=== PATIENT | female | born 1950 | race Caucasian/White ===

== ENCOUNTER 2016-12-08 07:43 | Emergency (ER) | payer BC ==
[~2016-12-08] VITALS: Ht 167.6 cm; Wt 67.5 kg
[~2016-12-08 07:43] MED LIST: ACET-1175 PO; ASPI1TAB35; CHOL100010 PO; CLC100X PO; ERGO500037 PO; LEVO-371; LEVO125T72 PO; MORP1CAP PO; OMEP10CA2 PO; ONDA8TAB6 PO; PHEN-775 PO; RIZA10TA18 PO; SENN-63 PO; XNX25 PO
[2016-12-08 07:48] VITALS: TEMP 36.7; Ht 167.6 cm; Wt 67.5 kg
--- NOTE | 2016-12-08 08:11 | EMERGENCY ROOM VISIT NOTE ---
History Report prepared by Arnoldo: Lawanda Lynch Under the Supervision of: Kadeem OteroO. First contact with patient: 07:50 Chief Complaint: SWELLING TO EXTREMITY Stated Complaint: SWELLING/BRUISING TO TOP OF LEFT FOOT History of Present Illness The patient is a 66 year old female who presents to the Emergency Room with complaints of persistent left foot bruising and swelling starting this morning. She woke up this morning with her symptoms. She reports a mild pain to the right lower leg. She took her grandson to the playground last night but denies any trauma or injuries. She has a history of being easily bruised occurring for many years. Pt denies headache, change in vision, fevers, chest pain, shortness of breath, vomiting, diarrhea, and pain with urination. Source of History: patient Onset: this morning Position: foot (left) Symptom Intensity: mild Quality: other (bruising and swelling) Timing: other (persistent) Associated Symptoms: No fevers, No headache, No chest pain, No SOB, No vomiting, No diarrhea Review of Systems See HPI for pertinent positives & negatives. A total of 10 systems reviewed and were otherwise negative. Past Medical & Surgical Medical Problems: (1) Anxiety disorder (2) Anxiety disorder (3) Cholecystectomy (4) Cholecystectomy (5) Chronic interstitial cystitis (6) Chronic interstitial cystitis (7) Fibromyalgia (8) Fibromyalgia (9) Gastroesophageal reflux disease (10) Gastroesophageal reflux disease (11) Hypothyroidism (12) Hypothyroidism (13) Hysterectomy (14) Hysterectomy (15) Internal hemorrhoids (16) Internal hemorrhoids (17) Irritable colon (18) Irritable colon (19) Lumbar radiculopathy (20) Lumbar radiculopathy (21) Migraine (22) Migraine (23) PERSONAL HX OF TIA,& CEREBRAL INFARCTION W/OUT RES DEFICITS (24) PERSONAL HX OF TIA,& CEREBRAL INFARCTION W/OUT RES DEFICITS (25) Pyelonephritis (26) Pyelonephritis (27) Spinal stenosis (28) Spinal stenosis (29) Spinal stenosis of lumbar region (30) Spinal stenosis of lumbar region (31) Vitamin D deficiency (32) Vitamin D deficiency Family History FH: heart disease Hypertension Social History Smoking Status: Never Smoker Alcohol Use: none Drug Use: none Marital Status: Housing Status: lives with family Occupation Status: disabled Current/Historical Medications Scheduled Alprazolam (Alprazolam), 1 TAB PO DAILY Aspirin (Jameson Aspirin), 650 MG DAILY Cholecalciferol (Vitamin D3), 3 TAB PO DAILY Levocetirizine Dihydrochloride (Xyzal), 5 MG DAILY Levothyroxine Sodium (Levothyroxine Sodium), 1 TAB PO DAILY Morphine Sulfate Beads (Morphine Sulfate ER), 1 CAP PO DAILY Morphine Sulfate Beads (Morphine Sulfate ER), 1 CAP PO TID Ondansetron Hcl (Zofran), 8 MG PO PRN Phenazopyridine Hcl (Pyridium), 200 MG PO PRN Rizatriptan Benzoate (Maxalt), 10 MG PO DAILY Sennosides (Senokot), 1 TAB PO 4XWK Scheduled PRN Acetaminophen (Tylenol), 650 MG PO Q6 PRN Allergies Coded Allergies: Quinolones (Unverified Allergy, Severe, SWELLING, 12/08/16) Sulfa Antibiotics (Unverified Allergy, Severe, FACIAL SWELLING/RASH/HIVES (TO SULFA DRUGS), 12/08/16) Azithromycin (Unverified Allergy, Intermediate, SWELLING, 12/08/16) Levofloxacin (Unverified Allergy, Intermediate, SWELLING, 12/08/16) Physical Exam Vital Signs Date Time Temp Pulse Resp B/P (MAP) Pulse Ox O2 Delivery O2 Flow Rate FiO2 12/08/16 09:01 65 18 135/73 98 12/08/16 07:48 36.7 85 18 157/68 99 Room Air Physical Exam GENERAL: Sitting up in bed, alert, well appearing, well nourished, no distress, non-toxic EYE EXAM: normal conjunctiva OROPHARYNX: no exudate, no erythema, lips, buccal mucosa, and tongue normal and mucous membranes are moist LUNGS: Clear to auscultation. Normal chest wall mechanics HEART: no murmurs, S1 normal and S2 normal ABDOMEN: abdomen soft, non-tender, normo-active bowel sounds, no masses, no rebound or guarding. SKIN: no rashes. Left foot base of skin is intact, no erythema, no evidence of cellulitis. UPPER EXTREMITIES: upper extremities are grossly normal. LOWER EXTREMITIES: No pitting edema. Flexion extension of left hip, knee, ankle , EHL are 5/5. Gross sensations intact. Able to ambulate without difficulty. No tenderness within the ankle. Diffuse bruising to the dorsal aspect of the foot tracking up to the distal ankle. No tenderness to the base of the fifth metatarsal or the arch of the foot. No pain with inversion or eversion. NEURO EXAM: Normal sensorium, cranial nerves II-XII grossly intact, normal speech, no gross weakness of arms, no gross weakness of legs. Medical Decision & Procedures Laboratory Results 12/08/16 08:10 Red Blood Count 4.69, Mean Corpuscular Volume 89.3, Mean Corpuscular Hemoglobin 30.1, Mean Corpuscular Hemoglobin Concent 33.7, Mean Platelet Volume 11.0, Neutrophils (%) (Auto) 64.3, Lymphocytes (%) (Auto) 21.8, Monocytes (%) (Auto) 9.1, Eosinophils (%) (Auto) 3.5, Basophils (%) (Auto) 1.1, Neutrophils # (Auto) 5.25, Lymphocytes # (Auto) 1.78, Monocytes # (Auto) 0.74, Eosinophils # (Auto) 0.29, Basophils # (Auto) 0.09 Test 12/08/16 08:10 White Blood Count 8.17 K/uL (4.8-10.8) Red Blood Count 4.69 M/uL (4.2-5.4) Hemoglobin 14.1 g/dL (12.0-16.0) Hematocrit 41.9 % (37-47) Mean Corpuscular Volume 89.3 fL (80-100) Mean Corpuscular Hemoglobin 30.1 pg (25-34) Mean Corpuscular Hemoglobin Concent 33.7 g/dl (32-36) Platelet Count 224 K/uL (130-400) Mean Platelet Volume 11.0 fL (7.4-10.4) Neutrophils (%) (Auto) 64.3 % Lymphocytes (%) (Auto) 21.8 % Monocytes (%) (Auto) 9.1 % Eosinophils (%) (Auto) 3.5 % Basophils (%) (Auto) 1.1 % Neutrophils # (Auto) 5.25 K/uL (1.4-6.5) Lymphocytes # (Auto) 1.78 K/uL (1.2-3.4) Monocytes # (Auto) 0.74 K/uL (0.11-0.59) Eosinophils # (Auto) 0.29 K/uL (0-0.5) Basophils # (Auto) 0.09 K/uL (0-0.2) RDW Standard Deviation 42.0 fL (36.4-46.3) RDW Coefficient of Variation 12.9 % (11.5-14.5) Immature Granulocyte % (Auto) 0.2 % Immature Granulocyte # (Auto) 0.02 K/uL (0.00-0.02) Laboratory results per my review. ED Course ED COURSE: Vital signs were reviewed and showed hypertensive. The patients medical record was reviewed The above diagnostic studies were performed and reviewed. ED treatments and interventions as stated above. 1749: The patient was evaluated in room B03B. A complete history and physical examination was performed. 2032: I updated the patient. 2049: Upon reevaluation, the patient is resting comfortably.I discussed my findings with the patient and she understands and agrees with the treatment plan. Based on the patients age, coexisting illnesses, exam and lab findings the decision to treat as an outpatient was made. The patient remained stable while under my care. The patient appeared well at the time of discharge. Medical Decision Differential diagnosis: Etiologies such as DVT, musculoskeletal, infection, joint effusion, trauma, lymphedema, idiopathic, CHF, as well as others were entertained. Patient is a 66-year-old female who presents the ER for left foot contusion on the dorsal aspect. Patient has no other complaints. Full active range of motion. No erythema.No signs of cellulitis. No erythema. CBC was drawn to check platelets and hemoglobin. CBC was unremarkable. Patient was updated bedside. She was discharged follow-up PCP. Discussed with Pt concerning signs and symptoms to watch out for. Pt was instructed to follow up with their PCP and discussed with the patient their option to return to the ED at anytime for persistent or worsening symptoms. The appropriate anticipatory guidance and out- patient management, including indications for return to the emergency department , were explained at length to the patient and understood. Medication Reconcilliation Current Medication List: was personally reviewed by me Blood Pressure Screening Patient's blood pressure: Elevated blood pressure Blood pressure disposition: Elevated BP felt to be situational Impression Primary Impression: Contusion, foot Scribe Attestation The scribe's documentation has been prepared under my direction and personally reviewed by me in its entirety. I confirm that the note above accurately reflects all work, treatment, procedures, and medical decision making performed by me. Departure Information Dispostion Home / Self-Care Referrals No Doctor, Assigned (PCP) Forms HOME CARE DOCUMENTATION FORM, IMPORTANT VISIT INFORMATION, WORK / SCHOOL INSTRUCTIONS Patient Instructions ED Contusion Foot, My [facility] Additional Instructions Please follow up with your primary care doctor or if you are a student, [facility] with in the next 24 hours. Any worsening of your symptoms, please return to the ED immediately. This includes any fevers greater than 100.4, worsening pain, chest pain, shortness breath, redness of your foot, worsening bruising, inability to walk, or any other concerning signs or symptoms from your standpoint. Please take Motrin or Tylenol as needed for your pain. Problem Qualifiers Primary Impression: Contusion, foot Encounter type: initial encounter Laterality: left Qualified Codes: S90.32XA - Contusion of left foot, initial encounter
[2016-12-08 08:23] LABS: BASO % 1.1 %; BASO ABS # 0.09 K/uL (0-0.2); COMPLETE YES; EOS % 3.5 %; HEMATOCRIT 41.9 % (37-47); IG% 0.2 %; LYMPH % 21.8 %; LYMPH ABS # 1.78 K/uL (1.2-3.4); MEAN CELL VOLUME 89.3 fL (80-100); MEAN CORPUSCULAR HEMOGLOBIN 30.1 pg (25-34); MEAN CORPUSCULAR HGB CONC 33.7 g/dl (32-36); MONO % 9.1 %; NEUT % 64.3 %; PLATELET COUNT 224 K/uL (130-400); RED BLOOD COUNT 4.69 M/uL (4.2-5.4); WHITE BLOOD COUNT 8.17 K/uL (4.8-10.8)
[2016-12-08] MEDS ORDERED: CHOL1000 PO (08:48)
[2016-12-08] MEDS ORDERED: LEVO100T7 PO (08:48)
[2016-12-08] MEDS ORDERED: ALPR-412 PO (08:48)
[2016-12-08] MEDS ORDERED: MORP1CAP PO ×2 (08:48)
[2016-12-08 09:01] VITALS: BP 135/73; PULSE 65; O2SAT 98
== END 2016-12-08 09:02 | disposition home or self-care (01) ==
LOC: C.EDB 07:44
DX: S90.32XA Contusion of left foot, initial encounter (principal); X58.XXXA Exposure to other specified factors, initial encounter; F41.9 Anxiety disorder, unspecified; N30.10 Interstitial cystitis (chronic) without hematuria; M79.7 Fibromyalgia; K21.9 Gastro-esophageal reflux disease without esophagitis; E03.9 Hypothyroidism, unspecified; K64.8 Other hemorrhoids; K58.9 Irritable bowel syndrome, unspecified; M54.16 Radiculopathy, lumbar region; G43.909 Migraine, unspecified, not intractable, without status migrainosus; M48.06 Spinal stenosis, lumbar region; E55.9 Vitamin D deficiency, unspecified; Z90.710 Acquired absence of both cervix and uterus; Z86.73 Personal history of transient ischemic attack (TIA), and cerebral infarction without residual deficits; Z79.82 Long term (current) use of aspirin; Z82.49 Family history of ischemic heart disease and other diseases of the circulatory system

== ENCOUNTER → 2016-12-18 | Outpatient (CLI) | payer BC ==
[~2016-12-18] MED LIST changes: +ALPR-412 PO; +CHOL1000 PO; -CHOL100010 PO; -CLC100X PO; -ERGO500037 PO; +LEVO100T7 PO; -LEVO125T72 PO; -OMEP10CA2 PO; -XNX25 PO
[2016-12-18 12:45] LABS: BLOOD UREA NITROGEN 8 mg/dl (7-18); BUN/CREATININE RATIO 9.6 (10-20); CALCIUM 9.1 mg/dl (8.5-10.1); CARBON DIOXIDE 32 mmol/L (21-32); CHLORIDE 102 mmol/L (98-107); CREATININE 0.88 mg/dl (0.60-1.20); GLUCOSE 87 mg/dl (70-99); POTASSIUM 4.1 mmol/L (3.5-5.1); SODIUM 138 mmol/L (136-145)
[2016-12-18 12:56] LABS: CHOLESTEROL 176 mg/dl (0-200); CHOLESTEROL/HDL RATIO 2.7; HDL CHOLESTEROL 66 mg/dl; LDL CHOLESTEROL CALCULATED 98 mg/dl; TRIGLYCERIDES 62 mg/dl (0-150); VERY LOW DENSITY LIPOPROT CALC 12 mg/dl
== END | disposition home or self-care (01) ==
LOC: C.LAB 10:42
DX: E55.9 Vitamin D deficiency, unspecified (principal); E03.9 Hypothyroidism, unspecified; K21.9 Gastro-esophageal reflux disease without esophagitis; Z13.220 Encounter for screening for lipoid disorders

== ENCOUNTER → 2017-01-24 | Outpatient (CLI) | payer BC | END | disposition home or self-care (01) | LOC: C.LAB 10:50 | DX: E03.9 Hypothyroidism, unspecified (principal) ==

== ENCOUNTER → 2017-08-29 | Outpatient (CLI) | payer BC ==
[~2017-08-29] MED LIST changes: -LEVO-371; +LEVO5TAB2; +ONDA-170 PO; -ONDA8TAB6 PO
[2017-08-29 12:40] LABS: BLOOD UREA NITROGEN 13 mg/dl (7-18); CALCIUM 9.1 mg/dl (8.5-10.1); CARBON DIOXIDE 32 mmol/L (21-32); CREATININE 0.79 mg/dl (0.60-1.20); GLUCOSE 142 mg/dl (70-99); POTASSIUM 3.9 mmol/L (3.5-5.1); SODIUM 136 mmol/L (136-145)
== END | disposition home or self-care (01) ==
LOC: C.LAB 11:26
DX: E03.9 Hypothyroidism, unspecified (principal); R53.83 Other fatigue

== ENCOUNTER 2017-12-26 10:45 | Emergency (ER) | payer BC ==
[~2017-12-26] VITALS: Ht 167.6 cm; Wt 66.6 kg
[~2017-12-26 10:45] MED LIST changes: -ASPI1TAB35; +ASPI1TAB35 PO; -PHEN-775 PO
[2017-12-26 10:52] VITALS: TEMP 36.7; Ht 167.6 cm; Wt 66.6 kg
--- NOTE | 2017-12-26 11:41 | EMERGENCY ROOM VISIT NOTE ---
History Report prepared by Arnoldo: Lacy Weinstein Under the Supervision of: Dr. Alexandre Syed M.D. First contact with patient: 11:13 Chief Complaint: NAUSEA Stated Complaint: DIZZINESS, NAUSEA Nursing Triage Summary: Pt arrived via ambulance ALS. Pt is a 67 female who lives at home with her spouse. Pt states that she has had nausea and dizziness since last night. Pt has thrown up several times. Pt has not had much of an appetite in the last day. Pt has chronic back and pelvic pain. Pt is on morphine and has a pain pump. Pt reports a small bowel movement this am. +BS all 4 quad, pt denies any tenderness in abdomen History of Present Illness The patient is a 67 year old female who presents to the Emergency Room with complaints of persistent nausea that started last night. The patient also complains of dizziness. She notes the dizziness worsens with movement. The patient notes she has also had several episodes of vomiting. She reports is trying to slowly stop taking Morphine and has stopped taking Alprazolam. The patient denies chest pain, shortness of breath, or abdominal pain. Source of History: patient Onset: last night Quality: other (nausea) Timing: other (persistent) Associated Symptoms: + vomiting, No chest pain, No SOB, No abdominal pain Note: Additional symptoms: dizziness. Review of Systems See HPI for pertinent positives & negatives. A total of 10 systems reviewed and were otherwise negative. Past Medical & Surgical Medical Problems: (1) Anxiety disorder (2) Anxiety disorder (3) Cholecystectomy (4) Cholecystectomy (5) Chronic interstitial cystitis (6) Chronic interstitial cystitis (7) Fibromyalgia (8) Fibromyalgia (9) Gastroesophageal reflux disease (10) Gastroesophageal reflux disease (11) Hypothyroidism (12) Hypothyroidism (13) Hysterectomy (14) Hysterectomy (15) Internal hemorrhoids (16) Internal hemorrhoids (17) Irritable colon (18) Irritable colon (19) Lumbar radiculopathy (20) Lumbar radiculopathy (21) Migraine (22) Migraine (23) PERSONAL HX OF TIA,& CEREBRAL INFARCTION W/OUT RES DEFICITS (24) PERSONAL HX OF TIA,& CEREBRAL INFARCTION W/OUT RES DEFICITS (25) Pyelonephritis (26) Pyelonephritis (27) Spinal stenosis (28) Spinal stenosis (29) Spinal stenosis of lumbar region (30) Spinal stenosis of lumbar region (31) Vitamin D deficiency (32) Vitamin D deficiency Family History FH: heart disease Hypertension Social History Smoking Status: Never Smoker Alcohol Use: none Drug Use: none Marital Status: Housing Status: lives with family Occupation Status: disabled Current/Historical Medications Scheduled Alprazolam (Alprazolam), 1 TAB PO DAILY Cholecalciferol (Vitamin D3), 3 TAB PO DAILY Levocetirizine Dihydrochloride (Xyzal Allergy 24Hr), 5 MG PO DAILY Levothyroxine Sodium (Synthroid), 125 MCG PO DAILY Morphine Sulfate Beads (Morphine Sulfate ER), 1 CAP PO TID Ondansetron Hcl (Zofran), 8 MG PO PRN Phenazopyridine Hcl (Pyridium), 200 MG PO PRN Sennosides (Senokot), 1 TAB PO 4XWK Scheduled PRN Acetaminophen (Tylenol), 650 MG PO Q6 PRN for Pain Aspirin (Jameson Aspirin), 650 MG PO BID PRN for Pain Rizatriptan Benzoate (Maxalt), 10 MG PO DAILY PRN for PRN Allergies Coded Allergies: Quinolones (Unverified Allergy, Severe, SWELLING, 12/26/17) Sulfa Antibiotics (Unverified Allergy, Severe, FACIAL SWELLING/RASH/HIVES (TO SULFA DRUGS), 12/26/17) Azithromycin (Unverified Allergy, Intermediate, SWELLING, 12/26/17) Levofloxacin (Unverified Allergy, Intermediate, SWELLING, 12/26/17) Physical Exam Vital Signs Date Time Temp Pulse Resp B/P (MAP) Pulse Ox O2 Delivery O2 Flow Rate FiO2 12/26/17 13:42 76 16 108/65 98 12/26/17 12:54 78 12/26/17 12:40 72 18 118/75 98 Room Air 12/26/17 12:01 73 18 140/75 95 Room Air 74 111/71 108/69 12/26/17 11:50 98 Room Air 12/26/17 11:50 98 Room Air 12/26/17 10:52 36.7 59 20 140/75 98 Room Air Physical Exam GENERAL: Awake, alert, well-appearing, in no acute distress HENT: Normocephalic, atraumatic. Oropharynx unremarkable. EYES: Normal conjunctiva. Sclera non-icteric. NECK: Supple. No nuchal rigidity. FROM. No JVD. RESPIRATORY: Clear to auscultation. CARDIAC: Regular rate, normal rhythm. Extremities warm and well perfused. Pulses equal. ABDOMEN: Soft, non-distended. No tenderness to palpation. No rebound or guarding. No masses. RECTAL: Deferred. MUSCULOSKELETAL: Chest examination reveals no tenderness. The back is symmetrical on inspection without obvious abnormality. There is no CVA tenderness to palpation. No joint edema. LOWER EXTREMITIES: Calves are equal size bilaterally and non-tender. No edema. No discoloration. NEURO: Normal sensorium. No sensory or motor deficits noted. SKIN: No rash or jaundice noted. Medical Decision & Procedures Laboratory Results 12/26/17 10:30 Red Blood Count 4.72, Mean Corpuscular Volume 87.1, Mean Corpuscular Hemoglobin 30.3, Mean Corpuscular Hemoglobin Concent 34.8, Mean Platelet Volume 12.0, Neutrophils (%) (Auto) 65.7, Lymphocytes (%) (Auto) 15.8, Monocytes (%) (Auto) 14.8, Eosinophils (%) (Auto) 2.0, Basophils (%) (Auto) 1.3, Neutrophils # (Auto ) 3.03, Lymphocytes # (Auto) 0.73, Monocytes # (Auto) 0.68, Eosinophils # (Auto ) 0.09, Basophils # (Auto) 0.06 12/26/17 10:30 Test 12/26/17 10:30 12/26/17 11:45 12/26/17 11:50 White Blood Count 4.61 K/uL (4.8-10.8) Red Blood Count 4.72 M/uL (4.2-5.4) Hemoglobin 14.3 g/dL (12.0-16.0) Hematocrit 41.1 % (37-47) Mean Corpuscular Volume 87.1 fL (80-100) Mean Corpuscular Hemoglobin 30.3 pg (25-34) Mean Corpuscular Hemoglobin Concent 34.8 g/dl (32-36) Platelet Count 201 K/uL (130-400) Mean Platelet Volume 12.0 fL (7.4-10.4) Neutrophils (%) (Auto) 65.7 % Lymphocytes (%) (Auto) 15.8 % Monocytes (%) (Auto) 14.8 % Eosinophils (%) (Auto) 2.0 % Basophils (%) (Auto) 1.3 % Neutrophils # (Auto) 3.03 K/uL (1.4-6.5) Lymphocytes # (Auto) 0.73 K/uL (1.2-3.4) Monocytes # (Auto) 0.68 K/uL (0.11-0.59) Eosinophils # (Auto) 0.09 K/uL (0-0.5) Basophils # (Auto) 0.06 K/uL (0-0.2) RDW Standard Deviation 41.4 fL (36.4-46.3) RDW Coefficient of Variation 12.8 % (11.5-14.5) Immature Granulocyte % (Auto) 0.4 % Immature Granulocyte # (Auto) 0.02 K/uL (0.00-0.02) Anion Gap 5.0 mmol/L (3-11) Est Creatinine Clear Calc Drug Dose 71.9 ml/min Estimated GFR () 100.2 Estimated GFR (Non- 86.4 BUN/Creatinine Ratio 15.1 (10-20) Calcium Level 8.9 mg/dl (8.5-10.1) Total Bilirubin 0.9 mg/dl (0.2-1) Direct Bilirubin 0.4 mg/dl (0-0.2) Aspartate Amino Transf (AST/SGOT) 378 U/L (15-37) Alanine Aminotransferase (ALT/SGPT) 259 U/L (12-78) Alkaline Phosphatase 168 U/L (45-117) Total Creatine Kinase 40 U/L (26-192) Creatine Kinase MB < 1.0 ng/ml (0.5-3.6) Creatine Kinase MB Ratio (0-3.0) Troponin I < 0.015 ng/ml (0-0.045) Total Protein 6.8 gm/dl (6.4-8.2) Albumin 3.9 gm/dl (3.4-5.0) Thyroid Stimulating Hormone (TSH) 0.064 uIu/ml (0.300-4.500) Urine Color YELLOW Urine Appearance CLEAR (CLEAR) Urine pH 8.5 (4.5-7.5) Urine Specific [place] 1.006 (1.000-1.030) Urine Protein NEG (NEG) Urine Glucose (UA) NEG (NEG) Urine Ketones TRACE (NEG) Urine Occult Blood NEG (NEG) Urine Nitrite NEG (NEG) Urine Bilirubin NEG (NEG) Urine Urobilinogen NEG (NEG) Urine Leukocyte Esterase NEG (NEG) Bedside Glucose 109 mg/dl (70-90) Labs reviewed by ED physician. Medications Administered Medications (Trade) Dose Ordered Sig/Marycruz Route Start Time Stop Time Status Last Admin Dose Admin Sodium Chloride 1,000 ml @ 999 mls/hr Q1H1M STAT IV 12/26/17 11:42 12/26/17 12:42 DC 12/26/17 11:42 999 MLS/HR Metoclopramide HCl (Reglan Inj) 10 mg NOW STAT IV 12/26/17 11:42 12/26/17 11:44 DC 12/26/17 11:57 10 MG Sodium Chloride 1,000 ml @ 999 mls/hr Q1H1M STAT IV 12/26/17 12:28 12/26/17 13:28 DC 12/26/17 12:28 999 MLS/HR ECG Per My Interpretation Indication: nausea Rate (beats per minute): 59 Rhythm: sinus bradycardia Findings: other (no ST elevation or depression) ED Course 1135: Past medical records reviewed. The patient was evaluated in room C7. A complete history and physical examination was performed. 0210: Upon reexamination the patient is resting comfortably. I discussed results and treatment plan with the patient. She verbalizes agreement and understanding. The patient is ready for discharge. Medical Decision Differential diagnosis: Etiologies such as appendicitis, diverticulitis, PUD, biliary pathology, UTI, pancreatitis, obstruction, mesenteric ischemia, aortic pathology, infections, inflammatory bowel disease, renal colic, as well as others were entertained. This is a 67-year-old female who presents emergency department complaining of nausea. The patient is orthostatic on physical examination. For this reason she was given a normal saline bolus 2. The patient does have a slight elevation in her transaminases and reviewing the chart she has had this previously. I did discuss this with the patient and asked her specifically if she has had any Tylenol or aspirin. She does admit to taking 4 aspirins daily however denies any overdoses or extra amounts of Tylenol. At this point I feel that the patient can be safely discharged home however I did recommend a repeat transaminase level be drawn. Patient and were in agreement with the treatment plan. Medication Reconcilliation Current Medication List: was personally reviewed by me Blood Pressure Screening Patient's blood pressure: Normal blood pressure Impression Primary Impression: Orthostatic hypotension Scribe Attestation The scribe's documentation has been prepared under my direction and personally reviewed by me in its entirety. I confirm that the note above accurately reflects all work, treatment, procedures, and medical decision making performed by me. Departure Information Dispostion Home / Self-Care Referrals Nii Miner Jr,D.O. (PCP) Patient Instructions My [facility] Additional Instructions Increase fluids next 48 hours You have been examined and treated today on an emergency basis only. This is not a substitute for, or an effort to provide, complete comprehensive medical care. It is impossible to recognize and treat all injuries or illnesses in a single emergency department visit. It is therefore important that you follow up closely with Dr Waller. Call as soon as possible for an appointment. Thank you for your time and consideration. I look forward to speaking with you again soon. Please don't hesitate to call us if you have any questions.
[2017-12-26] MEDS ORDERED: SODIUM CHLORIDE 0.9% 1000ML 1,000 ML IV STA ×2 (11:42→12:28)
[2017-12-26] MEDS ORDERED: METOCLOPRAMIDE HCL INJ 5 MG/ML 2 ML VIAL IV STA (11:42)
[2017-12-26 11:50] VITALS: O2SAT 98
[2017-12-26 11:53] LABS: BASO % 1.3 %; BASO ABS # 0.06 K/uL (0-0.2); EOS ABS # 0.09 K/uL (0-0.5); HEMATOCRIT 41.1 % (37-47); HEMOGLOBIN 14.3 g/dL (12.0-16.0); IG# 0.02 K/uL (0.00-0.02); LYMPH % 15.8 %; LYMPH ABS # 0.73 K/uL (1.2-3.4); MEAN CELL VOLUME 87.1 fL (80-100); MEAN CORPUSCULAR HEMOGLOBIN 30.3 pg (25-34); MEAN CORPUSCULAR HGB CONC 34.8 g/dl (32-36); MONO % 14.8 %; MONO ABS # 0.68 K/uL (0.11-0.59); NEUT % 65.7 %; NEUT ABS # 3.03 K/uL (1.4-6.5); PLATELET COUNT 201 K/uL (130-400); RED CELL DISTRIBUTION WIDTH CV 12.8 % (11.5-14.5); RED CELL DISTRIBUTION WIDTH SD 41.4 fL (36.4-46.3); WHITE BLOOD COUNT 4.61 K/uL (4.8-10.8)
[2017-12-26] MEDS ORDERED: LEVO125T72 PO (11:54)
[2017-12-26] MEDS ORDERED: LEVO5TAB7 PO (11:54)
[2017-12-26 13:27] LABS: ALBUMIN 3.9 gm/dl (3.4-5.0); ALKALINE PHOSPHATASE 168 U/L (45-117); ALT/SGPT 259 U/L (12-78); AST/SGOT 378 U/L (15-37); BLOOD UREA NITROGEN 11 mg/dl (7-18); CALCIUM 8.9 mg/dl (8.5-10.1); CARBON DIOXIDE 29 mmol/L (21-32); CKMB < 1.0 ng/ml (0.5-3.6); CREATININE 0.73 mg/dl (0.60-1.20); GLUCOSE 113 mg/dl (70-99); SODIUM 135 mmol/L (136-145); TOTAL PROTEIN 6.8 gm/dl (6.4-8.2)
[2017-12-26 13:42] VITALS: BP 108/65; PULSE 76; O2SAT 98
[2017-12-26] MEDS ORDERED: PHEN-775 PO (17:01)
== END 2017-12-26 14:15 | disposition home or self-care (01) ==
LOC: EDBD 10:45 → C.EDC 10:46
DX: I95.1 Orthostatic hypotension (principal); R11.0 Nausea; R74.0 Nonspecific elevation of levels of transaminase and lactic acid dehydrogenase [LDH]; F41.9 Anxiety disorder, unspecified; E03.9 Hypothyroidism, unspecified; Z79.891 Long term (current) use of opiate analgesic; Z88.1 Allergy status to other antibiotic agents; Z88.2 Allergy status to sulfonamides

== ENCOUNTER → 2017-12-31 | Outpatient (CLI) | payer BC ==
[~2017-12-31] MED LIST changes: -LEVO100T7 PO; +LEVO125T72 PO; -LEVO5TAB2; +LEVO5TAB7 PO; +PHEN-775 PO
[2017-12-31 12:29] LABS: BASO % 0.9 %; BASO ABS # 0.07 K/uL (0-0.2); EOS % 1.1 %; EOS ABS # 0.08 K/uL (0-0.5); HEMATOCRIT 42.1 % (37-47); HEMOGLOBIN 14.2 g/dL (12.0-16.0); IG# 0.04 K/uL (0.00-0.02); LYMPH % 22.8 %; LYMPH ABS # 1.73 K/uL (1.2-3.4); MEAN CELL VOLUME 88.1 fL (80-100); MEAN CORPUSCULAR HEMOGLOBIN 29.7 pg (25-34); MEAN CORPUSCULAR HGB CONC 33.7 g/dl (32-36); MEAN PLATELET VOLUME 11.3 fL (7.4-10.4); MONO % 7.5 %; MONO ABS # 0.57 K/uL (0.11-0.59); NEUT % 67.2 %; PLATELET COUNT 261 K/uL (130-400); RED CELL DISTRIBUTION WIDTH CV 12.8 % (11.5-14.5); RED CELL DISTRIBUTION WIDTH SD 41.4 fL (36.4-46.3); WHITE BLOOD COUNT 7.59 K/uL (4.8-10.8)
[2017-12-31 12:48] LABS: TOTAL PROTEIN 7.4 gm/dl (6.4-8.2)
[2017-12-31 12:59] LABS: MONOSPOT NEG (NEG)
[2017-12-31 13:34] LABS: HEP C IGG 13 YRS+OLDER_RFLX NEG (NEG)
[2018-01-02 14:34] LABS: HEPATITIS A IGM TC 51813E NON-REACTIVE (NON-REACTIVE)
== END | disposition home or self-care (01) ==
LOC: C.LAB 11:34
DX: K75.9 Inflammatory liver disease, unspecified (principal)